=== PATIENT | female | born 1945 | race Caucasian/White ===

== ENCOUNTER 2019-03-17 15:36 | Inpatient (IN) | payer MEDICARE, BC ==
[~2019-03-17] VITALS: Ht 162.6 cm; Wt 53.3 kg
--- NOTE | ~2019-03-17 | HEMODYNAMI ---
PATIENT:BRII FREDERICK MEDICAL RECORD: [id number] : 47 [id number] ADMISSION DATE: 03/17/19 Generatedon:03/18/201910:39 Patient name: BRII FREDERICK Patient #: [id number] SSN: [id number] : 1945 Date of study: 03/18/2019 Page: Of Hemodynamic Procedure Report Patient Data Patient Demographics Procedure consent was obtained First Name: BRII Gender: Female Last Name: YOLY : 1945 Patient #: [id number] Age: 73 year(s) Race: Unknown SSN: [id number] Additional ID: [id number] Contact details [address]: [address] [place] [address] State: [place] City: [place] Zip code: [address] Past Medical History Allergies Allergen Reaction Date Comments Reported Other allergy 03/18/2019 N Admission Admission Data Admission Date: 03/17/2019 Admission Time: 19:21 Arrival Date: 03/17/2019 Arrival Time: 0:00 Admit Source: Other Insurance Payor: Private Room #: D.2126 health insurance, Medicare [facility] #: [id number] Height (in.): 63.78 BSA: 1.5 (m2) Height (cm.): 162 BMI: 18.67 (kg/m2) Weight (lbs.): 108.03 Weight (kg.): 49 Lab Results Lab Result Date: 03/18/2019 Lab Result Time: 0:00 Biochemistry Name Units Result Min Max BUN mg/dl 10 --(-*--)-- 7 18 Creatinine mg/dl 0.6 --(*---)-- 0.6 1.3 Troponin l ng/ml 0.544 --(----)-* 0 0.06 CBC Name Units Result Min Max Hemoglobin g/dl 13.4 -*(----)-- 13.5 17.5 Procedure Procedure Types Cath Procedure Diagnostic Procedure [facility] w/Coronaries FFR/IVUS Intra-Coronary IVUS Initial Sedation Charges Moderate Sedation up to 30 minutes PCI Procedure Coronary Stent Coronary Stent Initial Procedure Description Procedure Date Procedure Date: 03/18/2019 Procedure Start Time: 10:01 Procedure End Time: 10:37 Procedure Staff Name Function Poncho Almendarez MD Performing Physician Pam Rodrigues RN Spudder Elsy Benz RT Monitor Rama Kendrick RT Scrub Procedure Data Cath Procedure Fluoroscopy Diagnostic fluoroscopy Total fluoroscopy Time: 6.1 time: 6.1 min min Diagnostic fluoroscopy Total fluoroscopy dose: 761 dose: 761 mGy mGy Contrast Material Contrast Material Type Amount (ml) Isovue 300 105 Entry Location Entry Primary Successful Side Size Upsize Upsize Entry Closure Succes sful Closure Location (Fr) 1 (Fr) 2 (Fr) Remarks Device Remarks Femoral Right 5 Fr 6 Fr Exoseal artery Short Estimated blood loss: 10 ml Diagnostic catheters Device Type Used For End Catheter Placement MULTIPACK JL 4.0 5Fr Left Coronary catheter Angiography MULTIPACK 3DRC 5Fr Procedure catheter MULTIPACK Pigtail 5 Fr Ventriculography catheter Procedure Complications No complications Procedure Medications Medication Administration Route Dosage 0.9% NaCl I.V. 100 ml/hr Oxygen etCO2 Nasal cannula 2 l/min Lidocaine 2% added to field 20 Heparin Flush Bag added to field 2 bags (1000units/500ml NS) Versed I.V. 2 mg Fentanyl I.V. 25 mcg Heparin Bolus I.V. 5000 units Plavix P.O. 75 mg Hemodynamics Rest BSA: 1.5 (m2) HGB: 13.4 (g/dl) O2 Consumption: Estimated: 143.44 (ml/min) O2 Con sumption indexed: Estimated:95.63 (ml/min/m) Heart Rate: 80 (bpm) Pressure Samples Time Site Value (mmHg) Purpose Heart Use Rate(bpm) 10:08 LV 125/-2,13 Snapshot 77 Gradients Valve Time Site Site Mean SEP/DFP Peak To Heart Use 1 2 (mmHg) (sec/min) Peak Rate (mmHg) (bpm) Aortic 10:11 LV AO 82 Snapshots Pre Cath Intra NCS Post Cath Vital Signs Time Heart Resp SPO2 etCO2 NIBP (mmHg) Rhythm Pain Sedation Rate (ipm) (%) (mmHg) Status Level (bpm) 9:43:54 86 11 98 32 159/99(135) NSR 0 (11) 10(A) , No pain 9:48:08 83 17 98 24.8 150/85(124) NSR 0 (11) 10(A) , No pain 9:52:20 76 15 98 31.6 132/78(94) NSR 0 (11) 10(A) , No pain 9:56:26 81 15 96 32 129/78(103) NSR 0 (11) 10(A) , No pain 10:00:31 75 13 96 32 135/78(108) NSR 0 (11) 10(A) , No pain 10:04:37 66 13 96 34.5 130/81(101) NSR 0 (11) 9(A) , No pain 10:08:43 75 15 95 32.4 125/73(93) NSR 0 (11) 9(A) , No pain 10:12:51 66 15 95 33.9 123/68(95) NSR 0 (11) 9(A) , No pain 10:16:54 72 12 95 17.3 126/73(98) NSR 0 (11) 9(A) , No pain 10:20:58 80 13 96 15 124/79(98) NSR 0 (11) 9(A) , No pain 10:25:04 73 14 95 21.8 125/72(92) NSR 0 (11) 9(A) , No pain 10:29:08 78 15 96 33.1 129/83(95) NSR 0 (11) 9(A) , No pain 10:33:16 70 10 95 19.5 127/71(90) NSR 0 (11) 10(A) , No pain 10:37:21 81 15 95 12.7 132/76(99) NSR 0 (11) 10(A) , No pain Medications Time Medication Route Dose Verified Delivered Reason Notes Effectiveness by by 9:42:58 0.9% NaCl I.V. 100 Poncho Pam used for ml/hr Erickson Rodrigues power tool repairer 9:43:05 Oxygen etCO2 2 Poncho Pam used for Nasal l/min Erickson Rodrigues procedure cannula RN 9:43:09 Lidocaine 2% added 20ml Poncho Poncho for local to vial Erickson Almendarez MD anesthetic field 9:43:14 Heparin Flush added 2 Poncho Poncho used for Bag to bags Erickson Almendarez MD procedure (1000units/500ml field NS) 9:59:03 Versed I.V. 2 mg Poncho Pam for sedation Erickson Rodrigues RN 9:59:08 Fentanyl I.V. 25 Poncho Pam for sedation mcg Erickson Rodrigues RN 10:16:30 Heparin Bolus I.V. 5000 Poncho Pam for verif ied units Erickson Rodrigues anticoagulation with DrCarlee Almendarez 10:34:06 Plavix P.O. 75 mg Poncho Pam for Erickson Rodrigues antiplatelet RN therapy Procedure Log Time Note 9:42:16 Diagnostic Cath Status : Urgent 9:42:50 Vital chart was started 9:42:58 0.9% NaCl 100 ml/hr I.V. was administered by Pam Rodrigues RN; used for procedure; Verbal order read back and verified. 9:43:05 Oxygen 2 l/min etCO2 Nasal cannula was administered by Pam Rodrigues RN; used for procedure; Verbal order read back and verified. 9:43:09 Lidocaine 2% 20ml vial added to field was administered by Poncho Almendarez MD; for local anesthetic; Verbal order read back and verified. 9:43:14 Heparin Flush Bag (1000units/500ml NS) 2 bags added to field was administered by Poncho Almendarez MD; used for procedure; Verbal order read back and verified. 9:45:54 Admit Source: Other 9:46:05 Arrival Date: 03/17/2019 12:00:00 AM 9:46:36 Insurance Payor : Private health insurance, Medicare 9:46:49 Patient Height : 63.78 inches 9:46:52 Patient Weight : 108.03 lbs 9:48:16 Lab Result : Troponin l 0.544 ng/ml 9:48:16 Lab Result : Creatinine 0.6 mg/dl 9:48:16 Lab Result : BUN 10 mg/dl 9:48:16 Lab Result : Hemoglobin 13.4 g/dl 9:48:50 ACC Patient presents with Symptoms unlikely to be ischemic CCS Anginal Class 0--No symptoms, no angina. 9:48:54 Procedure Status Urgent Heart Cath (IP). 9:48:56 Elsy Demar RT(R) sent for patient. Start room use. 9:48:57 Time tracking: Regular hours (M-F 7:00 - 5:00) 9:49:02 Plan of Care:Hemodynamics will remain stable., Cardiac rhythm will remain stable., Comfort level will be maintained., Respiratory function will remain adequate., Patient/ family verbilizes understanding of procedure., Procedure tolerated without complication., Recovers from procedure without complications.. 9:49:07 Patient received from Med II to CCL 2 Alert and oriented. Tansferred to table in Supine position. 9:49:10 Signed procedure consent form obtained from patient. 9:49:11 Warm blankets applied, and tashia hugger turned on for patient comfort. 9:49:12 Correct patient and procedure confirmed by team. 9:49:13 ECG and BP/O2 sat monitors applied to patient. 9:49:15 Baseline sample Acquired. 9:49:19 Rhythm: sinus rhythm 9:49:20 Full Disclosure recording started 9:49:26 H&P Date Dictated: 03/17/2019 Within 30 days and on chart., H&P Addendum completed by physician on day of procedure. (MUST COMPLETE FOR ALL OUTPATIENTS). 9:49:28 Pre-procedure instructions explained to patient. 9:49:29 Family in patients room. 9:49:31 Patient NPO since Midnight. 9:49:41 Patient allergic to Other allergyPCN 9:49:45 Is the patient allergic to Iodine/contrast media? No. 9:49:46 Was the patient premedicated? Yes 9:49:48 Is patient on blood thinner?Yes 9:49:52 ACC The patient was administered the following blood thiners within the last 24 hours: ACCPlavix 9:49:55 Patient diabetic? No. 9:49:59 Snore? Yes 9:50:00 Sleep apnea? No 9:50:06 Dentures? Yes tight 9:50:14 Patient pain scale 0/10 ?. 9:50:22 IV patent on arrival in right wrist with 0.9% NaCl at KVO. 9:50:25 Lab results completed and on chart. 9:50:32 Stress Test: no; N/A ? 9:50:37 Right groin area was prepped with chlora-prep and draped in sterile fashion 9:50:38 Alarms reviewed by Haylee NCarlee 9:50:39 Sharps counted by scrub and verified by R.N. 9:50:40 Physician paged 9:57:01 Physician arrived 9:57:01 --------ALL STOP TIME OUT------ 9:57:02 Final Timeout: patient, procedure, and site verified with staff and physician. All members of the team are in agreement. 9:57:05 Right groin site verified by team. 9:57:08 Fire Safety Assessment: A--An alcohol-based skin anteseptic being used preoperatively., C--Open oxygen or nitrous oxide is being used., D--An ESU, laser, or fiber-optic light is being used. 9:57:11 Physical assessment completed. ASA score P 2 - A patient with mild systemic disease as per Poncho Almendarez MD. 9:57:19 Sedation plan: IV Moderate Sedation Medication:Versed, Fentanyl 9:57:37 1) 90+ Normal kidney functon but urine findings or structural abnormalities or genetic trait point to kidney disease. 9:57:40 Maximum allowable contrast dose (3.7 X eGFR X 0.75)249 ml. 9:57:57 Use device set Femoral Dx 9:57:59 ACIST Syringe (82332) opened to sterile field. 9:57:59 Bag Decanter (2002) opened to sterile field. 9:58:00 Medline Cath Pack ([id number]) opened to sterile field. 9:58:01 ACIST Hand Control (79016) opened to sterile field. 9:58:02 ACIST Manifold (48557) opened to sterile field. 9:58:03 DIAGNOSTIC Multipack 5Fr catheter set (NL5333) opened to sterile field. 9:58:04 Tegaderm 4 x 4 (1626W) opened to sterile field. 9:58:06 SHEATH 5FR [place] (MBZ656) opened to sterile field. 9:58:07 EMERALD Guide Wire (604-561) opened to sterile field. 9:59:03 Versed 2 mg I.V. was administered by Pam Rodrigues RN; for sedation; Verbal order read back and verified. 9:59:08 Fentanyl 25 mcg I.V. was administered by Pam Ravi RN; for sedation; Verbal order read back and verified. 10:00:47 Zero performed for pressure channel P1 10:01:08 Procedure started. 10:01:20 Local anesthetic to right femoral artery with Lidocaine 2% by Poncho Almendarez MD.INITIAL ACCESS ONLY 10:03:00 A 5 Fr sheath was inserted into the Right Femoral artery 10:03:16 A MULTIPACK JL 4.0 5Fr catheter was advanced over the wire and used for Left Coronary Angiography. 10:05:13 LCA angiography performed. 10:05:31 Catheter removed. 10:05:39 A MULTIPACK 3DRC 5Fr catheter was advanced over the wire and used for Procedure. 10:06:51 RCA angiography performed. 10:07:00 ACCDominant side:Left 10:07:14 Catheter removed. 10:07:23 A MULTIPACK Pigtail 5 Fr catheter was advanced over the wire and used for Ventriculography. 10:07:50 LV gram done using ROBLES 10:09:32 EF : 40 % 10:14:07 Catheter removed. 10:14:47 SHEATH 6FR [place] (STS137) opened to sterile field. 10:14:47 TUBING High Pressure Extension Tubing (Erickson) (LF0767F) opened to sterile field. 10:14:48 GUIDE 6FR XBLAD 3.5 catheter ([id number]) opened to sterile field. 10:14:49 [place] Vinton Eagleye IVUS Catheter (55505U) opened to sterile field. 10:15:13 INFLATOR Merit BasixCompak (UF5469) opened to sterile field. 10:15:23 Sheath upsized to a 6 Fr Short. 10:15:35 6 Fr XBLAD3.5 guide catheter was inserted over the wire 10:16:30 Heparin Bolus 5000 units I.V. was administered by Pam Rodrigues RN; for anticoagulation; verified with Dr. Almendarez Verbal order read back and verified. 10:17:09 BMW 300cm [place] 2 J wire ([id number]) opened to sterile field. 10:17:44 BMW wire advanced. 10:17:48 IVUS catheter advanced over wire. 10:28:20 IVUS pass to LAD lesion performed. 10:28:23 IVUS catheter removed over wire. 10:28:37 IVUS measurement 69% %. 10:31:02 Place stent Inflation Number: 1 A INTEGRITY RX 3.5 x 22 stent ([id number]) was prepped and advanced across the Mid LAD 70. The stent was deployed at 12 CARINE for 0:18 (min:sec) . 10:31:53 EXOSEAL 6Fr (EX600) opened to sterile field. 10:34:06 Plavix 75 mg P.O. was administered by Pam Rodrigues RN; for antiplatelet therapy; Verbal order read back and verified. 10:34:44 Sheath removed intact; hemostasis achieved with Exoseal to the Right Femoral artery. 10:34:47 Procedure ended.(Physican Out) 10:34:56 Fluoroscopy time 06.10 minutes. 10:35:05 Flurop Dose total: 761 10:35:05 Fluoroscopy dose: 761 mGy 10:35:12 Dose Area Product 39025 mGy/cm. 10:35:19 Contrast amount:Isovue 300 105ml. 10:35:25 Maximum allowable dose exceeded? No. 10:35:39 Insertion/operative site no bleeding no hematoma. 10:35:43 Post-op/insertion site Right Femoral artery dressed using a 4 x 4 and Tegaderm. 10:35:45 Post Procedure Pulses reassessed and unchanged 10:35:55 Post-procedure physical assessment completed. ASA score P 3 - A patient with severe systemic disease as per Poncho Almendarez MD. 10:35:58 Post procedure rhythm: unchanged. 10:36:01 Estimated blood loss: 10 ml 10:36:03 Post procedure instruction explained to patient.Patient verbalizes understanding. 10:36:29 Procedure type changed to Cath procedure, Diagnostic procedure, C, [facility] w/Coronaries, FFR/IVUS, Intra-Coronary IVUS Initial, Sedation Charges, Moderate Sedation up to 30 minutes, PCI procedure, Coronary Stent, Coronary Stent Initial 10:36:30 Procedure and supply charges have been captured, reviewed, submitted and are correct. 10:36:54 Procedure Complication : No complications 10:36:57 Vital chart was stopped 10:37:11 [facility] Findings: MVD- PCI performed (see procedure note) 10:37:14 Operative report dictated upon procedure completion. 10:37:14 See physician's report for complete and final results. 10:37:16 Report given to [facility] II. 10:37:21 Patient transfered to [facility] with Bed. 10:37:26 Procedure ended. 10:37:26 Full Disclosure recording stopped 10:37:38 End room use (Document Last) 10:38:35 ACT drawn and resulted at >400 seconds. (normal therapeutic range 180-240 seconds). Intervention Summary Intervention Notes Time ActionType Lesion and Equipment Action# Pressure Duration Attributes Used 10:31:02 Place stent Mid LAD INTEGRITY RX 1 12 00:18 3.5 x 22 stent ([id number]) Device Usage Item Name Manufacture Quantity Catalog Hospital Part Current Minimal Lot# / Number Charge Number Stock Stock Serial# Code ACIST Acist 1 04798 198631 650261 519688 20 Syringe Medical (28167) Systems Inc Bag Decanter Microtek 1 2001S 385720 68368 057807 5 () Medical Inc. Medline Cath Medline 1 [id number] 274587 14401 056177 5 Pack ([id number]) ACIST Hand Acist 1 94354 884328 015927 419642 5 Control Medical (65745) Systems Inc ACIST Acist 1 25550 907898 528958 582636 5 Manifold Medical (18020) Systems Inc DIAGNOSTIC Cardinal 1 IB0264 428296 03494 630226 30 Multipack Health 5Fr catheter set (EX5142) Tegaderm 4 x 3M 1 1626W 843497 185100 682729 5 4 (1626W) SHEATH 5FR Terumo 1 DFY319 732510 062961 055536 5 [place] (TAK984) EMERALD Cardinal 1 502-455 168627 263799 018364 5 Guide Wire [facility] (502-455) MULTIPACK JL Cardinal 1 728402 5 4.0 5Fr Health catheter MULTIPACK Cardinal 1 179983 5 3DRC 5Fr Health catheter MULTIPACK Cardinal 1 318501 5 Pigtail 5 Fr Health catheter SHEATH 6FR Terumo 1 MDW150 399680 580923 910960 40 [place] (ZZP047) TUBING High Merit 1 TO1874Y 391422 01651 226344 10 Pressure Medical Extension Tubing (Almendarez) (JZ1953W) GUIDE 6FR Cardinal 1 [id number] 920382 964676 917641 10 XBLAD 3.5 Health catheter (40994893) [place] 1 93136X 400705 606330 399535 8 [place] IVUS Catheter (41004X) INFLATOR Merit 1 LP4432 533519 207588 990853 15 [facility] Medical BasixCompak (ZX0477) BMW 300cm Meyer 1 [id number] 678922 281304 760623 5 [place] 2 Vascular J wire (0550257M) INTEGRITY RX Medtronic 1 [id number] 629835 131374 851116 5 [id number] 3.5 x 22 stent ([id number]) EXOSEAL 6Fr Cardinal 1 EX600 764896 465248 205802 10 (EX600) Health Signature Audit [place] Stage Time Signature Unsigned Intra-Procedure 03/18/2019 Elsy Benz 10:38:55 AM RT(R) Intra-Procedure 03/18/2019 Pam Rodrigues 10:39:31 AM RN Intra-Procedure 03/18/2019 Poncho Almendarez MD 10:39:53 AM Signatures Performing Physician : Signature : Poncho Almendarez MD Date : Time : Monitor : Elsy Benz Signature : RT Date : Time : [address] [place] [address]
[2019-03-17 16:29] VITALS: BP 142/74
--- NOTE | 2019-03-17 16:30 | NUR ---
PAGED DR MASTERS AND MADE AWARE THAT TROP 0.544 AND HE SAID THAT WAS FINE.
[2019-03-17 16:56] LABS: BASOPHILS 0.4 % (0-2); EOSINOPHILS 1.4 % (0-7); HEMATOCRIT 41.2 % (36.0-48.0); HEMOGLOBIN 13.4 g/dL (12-16); IMMATURE GRANULOCYTES 0.2 % (0-5); MCH 33.2 pg (26.0-34.0); MCHC 32.5 g/dL (31.0-37.0); MEAN PLATELET VOLUME 10.7 fL (7.4-10.4); MONOCYTES 9.7 % (2-11); NEUTROPHILS 63.3 % (40-80); PLATELET COUNT 160 10x3/uL (130-400); RBC 4.04 10x6/uL (4.00-5.40); RDW 13.3 % (11.5-14.5); WBC 5.6 10x3/uL (4.8-10.8)
[2019-03-17 17:00] VITALS: BP 124/65
[2019-03-17 17:09] LABS: APTT 35.6 SECONDS (22.8-39.4); INR 1.15 (0.85-1.17); PROTIME 14.2 SECONDS (11.6-15.0)
[2019-03-17 17:10] LABS: D-DIMER-QUANTITATIVE 0.83 ug/mLFEU (0.20-0.54)
[2019-03-17 17:12] LABS: CALC OSMOLALITY 281 mosm/kg (275-300); CALCIUM 8.4 mg/dL (8.5-10.1); CARBON DIOXIDE 27.3 mmol/L (21.0-32.0); CHLORIDE - SERUM 106 mmol/L (98-107); CREATININE - SERUM 0.6 mg/dL (0.6-1.3); GLUCOSE 92 mg/dL (74-106); POTASSIUM - SERUM 3.5 mmol/L (3.5-5.1); SODIUM 142 mmol/L (136-145); UREA NITROGEN 10 mg/dL (7-18); eGFR NON AFRICAN AMERICAN > 90 mL/min (90-120)
[2019-03-17 17:30] VITALS: BP 132/74
[2019-03-17 17:31] LABS: ALBUMIN 3.2 g/dL (3.4-5.0); ALKALINE PHOSPHATASE 64 U/L (46-116); ALT (SGPT) 26 U/L (10-68); BILIRUBIN - TOTAL 0.84 mg/dL (0.2-1.3); CKMB 4.9 U/L (0.0-3.6); CREATINE KINASE 121 UL (21-215); PROTEIN - SERUM 7.1 g/dL (6.4-8.2)
[2019-03-17 17:45] LABS: TROPONIN-I 0.544 ng/mL (0.000-0.060)
[2019-03-17 18:00] VITALS: BP 125/68
[2019-03-17 18:45] VITALS: BP 130/74
--- NOTE | 2019-03-17 18:56 | NUR ---
SANDWICH TRAY GIVEN TO PT AFTER CLEARED WITH DR SEVILLA
--- NOTE | 2019-03-17 19:12 | NUR ---
REPORT GIVEN TO KYMBERLY
[2019-03-17 20:12] LABS: CKMB 4.4 U/L (0.0-3.6); CREATINE KINASE 118 UL (21-215)
[2019-03-17 20:18] LABS: TROPONIN-I 0.588 ng/mL (0.000-0.060)
[2019-03-17] MEDS ORDERED: ALENDRONATE SOD35 MG PO (21:16)
[2019-03-17] MEDS ORDERED: CITRACAL + D E1 EACH PO (21:17)
[2019-03-17] MEDS ORDERED: VITAMIN C500 M1 PO (21:17)
[2019-03-17] MEDS ORDERED: VITAMIN D31000 UNIT PO (21:17)
[2019-03-17] MEDS ORDERED: CETIRIZINE HCL5 MG PO (21:18)
[2019-03-17] MEDS ORDERED: VITAMIN E100 UNIT PO (21:18)
[2019-03-17 22:06] VITALS: BP 140/86; Ht 162.6 cm; Wt 53.3 kg
[2019-03-18 02:34] LABS: CKMB 3.7 U/L (0.0-3.6); CREATINE KINASE 120 UL (21-215)
[2019-03-18 02:35] LABS: TROPONIN-I 0.544 ng/mL (0.000-0.060)
--- NOTE | 2019-03-18 03:20 | NUR ---
RESTING WITH EYES CLOSED, RESPERATIONS EVEN, NO S/S DISTRESS NOTED.
[2019-03-18 04:00] VITALS: BP 122/67
[2019-03-18 07:33] LABS: BASOPHILS 0.7 % (0-2); HEMATOCRIT 38.9 % (36.0-48.0); HEMOGLOBIN 12.6 g/dL (12-16); LYMPHOCYTES 24.9 % (15-50); MCH 33.2 pg (26.0-34.0); MCHC 32.4 g/dL (31.0-37.0); MCV 102.4 fL (80.0-100.0); MEAN PLATELET VOLUME 11.1 fL (7.4-10.4); MONOCYTES 12.1 % (2-11); NEUTROPHILS 58.3 % (40-80); PLATELET COUNT 148 10x3/uL (130-400); RDW 13.6 % (11.5-14.5); WBC 4.5 10x3/uL (4.8-10.8)
--- NOTE | 2019-03-18 07:48 | NUR ---
REPORT RECEIVED. WILL CONTINUE WITH POC. PT LYING SEMI FOWLERS. CALL LIGHT W/I REACH. PT IS AAO AND UP WITH ASSIST. FAMILY AT BEDSIDE. RR EVEN AND UNLABORED ON 2L 02. R.FOR PIV IS SALINE LOCKED. PT IS NPO UNTIL SEEN BY CARDIOLOGY. NO S/S OF DISTRESS NOTED. PT DENIES ANY NEEDS AT THIS TIME. WILL CTM.
[2019-03-18 07:50] LABS: ALKALINE PHOSPHATASE 60 U/L (46-116); ALT (SGPT) 24 U/L (10-68); BILIRUBIN - TOTAL 0.63 mg/dL (0.2-1.3); CALC OSMOLALITY 281 mosm/kg (275-300); CALCIUM 7.9 mg/dL (8.5-10.1); CHLORIDE - SERUM 107 mmol/L (98-107); CKMB 3.9 U/L (0.0-3.6); CREATINE KINASE 133 UL (21-215); CREATININE - SERUM 0.7 mg/dL (0.6-1.3); GLUCOSE 92 mg/dL (74-106); MAGNESIUM - SERUM 2.1 mg/dL (1.8-2.4); PHOSPHOROUS 2.9 mg/dL (2.5-4.9); POTASSIUM - SERUM 3.1 mmol/L (3.5-5.1); PROTEIN - SERUM 6.9 g/dL (6.4-8.2); SODIUM 141 mmol/L (136-145); THYROID STIMULATING HORMONE 2.89 uIU/mL (0.36-3.74); UREA NITROGEN 15 mg/dL (7-18); eGFR NON AFRICAN AMERICAN 87 mL/min (90-120)
[2019-03-18 08:00] VITALS: BP 123/75
[2019-03-18 09:03] LABS: CHOL - HDL RATIO 2.8 ratio (2.3-4.1); LDL-HDL RATIO 1.5 ratio (1.5-3.5)
--- NOTE | 2019-03-18 09:14 | NUR ---
CONSENTS SIGNED. PREOP MEDICATIONS ADMININSTERED PER PRIMARY CARE MD REQUEST. NS INFUSING @KVO VIA R.WRIST PIV. NO S/S OF DISTRESS NOTED. PT DENIES ANY NEEDS. WILL CTM.
--- NOTE | 2019-03-18 10:57 | NUR ---
RECEIVED PT FROM STAGE DRIVER. RIGHT FEMORAL CATH SITE IS C/D/I WITH NO S/S OF HEMATOMA PRESENT. PERIPHERAL PULSES BILATERALLY EVEN AND STRONG. PT DENIES ANY NEEDS. NS INFUSING @100ML/HR VIA R.WRIST PIV. WILL CTM.
[2019-03-18 12:00] VITALS: BP 105/61
--- NOTE | 2019-03-18 14:34 | NUR ---
I have reviewed this patient and I concur with the Shift Assessment completed by the Licensed Practical Nurse today this shift.
[2019-03-18 16:34] VITALS: BP 104/58
[2019-03-18 20:00] VITALS: BP 106/61
--- NOTE | 2019-03-18 20:04 | NUR ---
RECEIVED UP IN BED EATING WITH FAMILY AT BEDSIDE. ALERT AND ORIENTED. UP WITH ASSIST. SOUSE STATES HE WILL SPEND THE NIGHT. DSG TO RIGHT GROIN CDI. NO BRUISING OBSERVED. IV TO RIGHT FA SL.. TELEMETRY IN PLACE. DENIES ANY NEEDS AT THIS TIME.
[2019-03-19] VITALS: BP 121/71
[2019-03-19 04:00] VITALS: BP 122/73
[2019-03-19 06:09] LABS: BASOPHILS 0.3 % (0-2); EOSINOPHILS 2.7 % (0-7); HEMOGLOBIN 11.6 g/dL (12-16); LYMPHOCYTES 21.8 % (15-50); MCHC 31.4 g/dL (31.0-37.0); MCV 102.2 fL (80.0-100.0); MONOCYTES 10.3 % (2-11); NEUTROPHILS 64.9 % (40-80); PLATELET COUNT 150 10x3/uL (130-400); RBC 3.62 10x6/uL (4.00-5.40); RDW 13.6 % (11.5-14.5)
[2019-03-19 06:24] LABS: CALC OSMOLALITY 284 mosm/kg (275-300); CHLORIDE - SERUM 107 mmol/L (98-107); CREATININE - SERUM 0.7 mg/dL (0.6-1.3); GLUCOSE 97 mg/dL (74-106); MAGNESIUM - SERUM 2.3 mg/dL (1.8-2.4); PHOSPHOROUS 2.6 mg/dL (2.5-4.9); POTASSIUM - SERUM 3.6 mmol/L (3.5-5.1); SODIUM 143 mmol/L (136-145); UREA NITROGEN 13 mg/dL (7-18); eGFR NON AFRICAN AMERICAN 87 mL/min (90-120)
[2019-03-19 06:27] LABS: WBC 6.8 10x3/uL (4.8-10.8)
--- NOTE | 2019-03-19 07:31 | NUR ---
REPORT RECEIVED. WILL CONTINUE WITH POC. PT CURRENTLY LYING SEMI FOWLERS. CALL LIGHT W/I REACH. FAMILY AT BEDSIDE. PT IS AAO AND UP AD ARTEM. RR EVEN AND UNLABORED ON RA. R.FOR PIV IS SALINE LOCKED. NO S/S OF DISTRESS NOTED. PT DENIES ANY NEEDS. WILL CTM.
[2019-03-19 08:00] VITALS: BP 125/72
[2019-03-19] MEDS ORDERED: COREG 3.1253.125 MG PO (09:52)
[2019-03-19] MEDS ORDERED: CRESTOR10 MG PO (09:52)
[2019-03-19] MEDS ORDERED: PLAVIX75 MG PO (09:52)
[2019-03-19] MEDS ORDERED: BAYER CHEWABLE81 MG PO (10:25)
--- NOTE | 2019-03-19 10:38 | MORECARE ---
CASE MANAGEMENT DISCHARGE SUMMARY PATIENT: MERRY FREDERICK UNIT: [id number] ADM DATE: 03/18/19 AGE: 73 : 46 SEX: F ROOM/BED: D.9606 AUTHOR: MADELEINE MCCULLOUGH PHYSICIAN: REFERRING PHYSICIAN: MARCELA ALEJO MD DATE OF SERVICE: 03/19/19 Discharge Plan Patient Name: MERRY FREDERICK Facility: [facility]:[place] : 1945 Planned Disposition: Home Anticipated Discharge Date: 03/19/19 Discharge Date: Expected LOS: 1 Initial Reviewer: [email or web address] Initial Review Date: 03/19/2019 Generated: 03/19/19 11:38 am Comments DCP- Discharge Planning Updated by [email or web address]: Starla Zambrano on 03/19/19 9:[address] Patient Name: MERRY FREDERICK Admission Status: ER Accout number: [id number] Admission Date: 03-18-2019 : 1945 Admission Diagnosis: Attending: MARCELA PARDO Current LOS: 1 Anticipated DC Date: 03-19-2019 Planned Disposition: Home Primary Insurance: MEDICARE A & B Discharge Planning Comments: CM MET WITH PATIENT AND FAMILY AFTER OBTAINING VERBAL CONSENT. PATIENT'S PLAN IS TO RETURN HOME WITH SPOUSE. DENIES ANY NEEDS FOR EQUIPMENT, HH OR REHAB. FAMILY IS HERE TO TAKE HER HOME WHEN DISCHARGED. CM TO FOLLOW AND ASSIST. Auto Parts Manager: Starla Zambrano DCPIA - Discharge Planning Initial Assessment Updated by [email or web address]: Starla Zambrano on 03/19/19 10:34 am * Is the patient Alert and Oriented? Yes * PCP [facility] [place] * Pharmacy [facility] [place] * Preadmission Environment Home with Family * ADLs Independent * Equipment None * Community resources currently utilized None * Additional services required to return to the preadmission environment? No * Can the patient safely return to the preadmission environment? Yes * Has this patient been hospitalized within the prior 30 days at any hospital? No Coverage Notice Reviewer: [id number] - Megan Koroma Notice Issued Date-Time: 03/17/2019 19:41 Notice Type: Medicare Outpatient Observation Notice Notice Delivered To: Patient Relationship to Patient: Self Manager Food Beverage Name: Merry frederick Delivery Method: HAND - Hand Delivered Rohini Days: Prior Verbal Notification: Recipient Understood Notice: Yes Recipient Signature: Yes Med Rec Note Co-signed by Attending: Coverage Notice Comment: MALDONADO delivered to and signed by patient. Original given to patient and on chart. Patient Name: MERRY FREDERICK Page [phone] at 1038 All edits/amendments must be made on the electronic document DICTATION DATE: 03/19/19 1038 TIRE RECAPPING MACHINE OPERATOR: JOSSIE 03/19/19 1038 RPT#: [id number] DC DATE: STATUS: ADM IN [facility] [address] [place] [address] END OF REPORT
--- NOTE | 2019-03-19 10:56 | NUR ---
PT DISCHARGED HOME VIA WHEELCHAIR WITH FAMILY. PIV REMOVED WITH CATHETER TIP FULLY INTACT. TELEMETRY REMOVED AND RETURNED. PT SIGNED PROPER DISCHARGE INSTRUCTIONS AND REMOVED ALL VALUABLES FROM THE ROOM.
--- NOTE | 2019-03-19 12:17 | MORECARE ---
CASE MANAGEMENT DISCHARGE SUMMARY PATIENT: MERRY FREDERICK UNIT: [id number] ADM DATE: 03/18/19 AGE: 73 : 46 SEX: F ROOM/BED: D.0556 AUTHOR: MADELEINE MCCULLOUGH PHYSICIAN: REFERRING PHYSICIAN: MARCELA ALEJO MD DATE OF SERVICE: 03/19/19 Discharge Plan Patient Name: MERRY FREDERICK Facility: [facility]:[place] : 1945 Planned Disposition: Home Anticipated Discharge Date: 03/19/19 Discharge Date: 03/19/2019 Expected LOS: 1 Initial Reviewer: [email or web address] Initial Review Date: 03/19/2019 Generated: 03/19/19 1:17 pm Comments DCP- Discharge Planning Updated by [email or web address]: Starla Zambrano on 03/19/19 9:[address] Patient Name: MERRY FREDERICK Admission Status: ER Accout number: [id number] Admission Date: 03-18-2019 : 1945 Admission Diagnosis: Attending: MARCELA PARDO Current LOS: 1 Anticipated DC Date: 03-19-2019 Planned Disposition: Home Primary Insurance: MEDICARE A & B Discharge Planning Comments: CM MET WITH PATIENT AND FAMILY AFTER OBTAINING VERBAL CONSENT. PATIENT'S PLAN IS TO RETURN HOME WITH SPOUSE. DENIES ANY NEEDS FOR EQUIPMENT, HH OR REHAB. FAMILY IS HERE TO TAKE HER HOME WHEN DISCHARGED. CM TO FOLLOW AND ASSIST. Flight Simulator Teacher: Starla Zambrano DCPIA - Discharge Planning Initial Assessment Updated by [email or web address]: Starla Zambrano on 03/19/19 10:34 am * Is the patient Alert and Oriented? Yes * PCP [facility] [place] * Pharmacy [facility] [place] * Preadmission Environment Home with Family * ADLs Independent * Equipment None * Community resources currently utilized None * Additional services required to return to the preadmission environment? No * Can the patient safely return to the preadmission environment? Yes * Has this patient been hospitalized within the prior 30 days at any hospital? No Coverage Notice Reviewer: [email or web address] - Megan Koroma Notice Issued Date-Time: 03/17/2019 19:41 Notice Type: Medicare Outpatient Observation Notice Notice Delivered To: Patient Relationship to Patient: Self [employer] Fire Fighter Name: Merry frederick Delivery Method: HAND - Hand Delivered Rohini Days: Prior Verbal Notification: Recipient Understood Notice: Yes Recipient Signature: Yes Med Rec Note Co-signed by Attending: Coverage Notice Comment: MALDONADO delivered to and signed by patient. Original given to patient and on chart. Last DP export: 03/19/19 9:38 Patient Name: MERRY FREDERICK Page [phone] at 1217 All edits/amendments must be made on the electronic document DICTATION DATE: 03/19/191216 PHOTO CHECKER AND ASSEMBLER: JOSSIE 03/19/191216 RPT#: [id number] DC DATE:03/19/19 STATUS: DIS IN [facility] [address] [place] [address] END OF REPORT
== END 2019-03-19 11:12 | disposition home or self-care (01) | DRG 249 ==
LOC: D.ER 15:36 → D.M2 19:21 → OBSVTIME 19:21 → D.M2 03-18 18:20
PROVIDERS: Family Medicine; Internal Medicine Cardiovascular Disease; ADMIT Family Medicine Adult Medicine; ATTEND Family Medicine Adult Medicine
PROC: B2111ZZ Fluoroscopy of Multiple Coronary Arteries using Low Osmolar Contrast (ICD-10-PCS; 2019-03-18)
PROC: B2151ZZ Fluoroscopy of Left Heart using Low Osmolar Contrast (ICD-10-PCS; 2019-03-18)
PROC: B240ZZ3 Ultrasonography of Single Coronary Artery, Intravascular (ICD-10-PCS; 2019-03-18)
PROC: 02703DZ Dilation of Coronary Artery, One Artery with Intraluminal Device, Percutaneous Approach (ICD-10-PCS; principal; 2019-03-18 09:48)
PROC: 4A023N7 Measurement of Cardiac Sampling and Pressure, Left Heart, Percutaneous Approach (ICD-10-PCS; 2019-03-18 09:48)
DX: I21.4 Non-ST elevation (NSTEMI) myocardial infarction (principal); I25.10 Atherosclerotic heart disease of native coronary artery without angina pectoris; K21.9 Gastro-esophageal reflux disease without esophagitis; D75.89 Other specified diseases of blood and blood-forming organs; M81.0 Age-related osteoporosis without current pathological fracture; M41.9 Scoliosis, unspecified; I49.1 Atrial premature depolarization

== ENCOUNTER → 2020-07-10 10:47 | Outpatient (CLI) | payer MEDICARE, BC ==
[2019-03-17 22:06] VITALS: BMI 18.7
[~2020-07-10 10:47] MED LIST: ALENDRONATE SOD35 MG PO; BAYER CHEWABLE81 MG PO; CETIRIZINE HCL5 MG PO; CITRACAL + D E1 EACH PO; COREG 3.1253.125 MG PO; CRESTOR10 MG PO; PLAVIX75 MG PO; VITAMIN C500 M1 PO; VITAMIN D31000 UNIT PO; VITAMIN E100 UNIT PO
--- NOTE | 2020-07-11 13:52 | ST ---
PATIENT:BRII FREDERICK MEDICAL RECORD: [id number] SEX: F LOCATION:[facility] ORDER #: ADMISSION DATE: 07/10/20 AGE OF PATIENT: 74 REFERRING PHYSICIAN: INTERPRETING PHYSICIAN: HUMAIRA LY MD DATE OF SERVICE: 07/10/2020 NUCLEAR STRESS TEST GATED: Gated is normal with normal wall motion and normal EF of 75%. SPECT IMAGING: SPECT imaging was performed. Short axis view: Short axis view shows reversible defect from the mid anterior wall down to the anterior apex. Horizontal axis: This is confirmed in the horizontal axis with a reversible defect from the mid anterior wall down to the anterior apical region. Vertical axis: Vertical axis shows good uptake along the lateral wall and septum. FINAL IMPRESSION: 1. Normal gated motion, normal wall motion, normal EF 75%. 2. SPECT imaging with mid anterior wall down to the anterior apical reversible defect seen in 2 views. FINAL IMPRESSION: Given history of coronary artery disease and ongoing ischemic symptomatology scan is concerning for recurrence of disease or progression of havasupai disease. Diagnostic angiography is recommended if clinically indicated. TRANSINT:[id number] Voice Confirmation ID: [id number] DOCUMENT ID: [id number] HUMAIRA LY MD at 1352 CC: [id number] DICTATION DATE: 07/10/20 1628 DESKTOP SUPPORT SPECIALIST: 07/11/20 0519 [facility] CLI 07/10/[address] [address]
== END | disposition home or self-care (01) ==
LOC: D.HCCARDIO 06-08 11:30
PROVIDERS: ATTEND Internal Medicine Interventional Cardiology
DX: I25.10 Atherosclerotic heart disease of native coronary artery without angina pectoris (principal)

== ENCOUNTER 2020-07-26 10:49 | Day surgery (SDC) | payer MEDICARE, BC ==
[~2020-07-26] VITALS: Ht 165.1 cm; Wt 46.2 kg
--- NOTE | ~2020-07-26 | HEMODYNAMI ---
PATIENT:BRII FREDERICK MEDICAL RECORD: [id number] : 47 LOCATION:[facility] ADMISSION DATE: 07/26/20 Generatedon:114:20 Patient name: BRII FREDERICK Patient #: [id number] SSN: [id number] : 1945 Date of study: 07/26/2020 Page: Of Hemodynamic Procedure Report Patient Data Patient Demographics Procedure consent was obtained First Name: BRII Gender: Female Last Name: YOLY : 1945 Patient #: [id number] Age: 74 year(s) Race: Unknown SSN: [id number] Additional ID: [id number] Contact details [address]: [address] [place] [address] State: [place] City: [place] Zip code: [address] Past Medical History Performed procedures and imaging results Date Procedure Procedure Results Comments Stress Positive->Intermediate echocardiogram risk History of disease Date Diagnosis Comments CAD Allergies Allergen Reaction Date Comments Reported Other allergy 03/18/2019 PCN Other allergy 07/26/2020 PCN Admission Admission Data Admission Date: 07/26/2020 Admission Time: 10:49 Arrival Date: 07/26/2020 Arrival Time: 0:00 Admit Source: Other Insurance Payor: Medicare, Private health insurance [facility] #: [id number] Height (in.): 64.96 BSA: 1.48 (m2) Height (cm.): 165 BMI: 16.9 (kg/m2) Weight (lbs.): 101.41 Weight (kg.): 46 Lab Results Lab Result Date: 07/26/2020 Lab Result Time: 0:00 Biochemistry Name Units Result Min Max BUN mg/dl 12 --(-*--)-- 7 18 Creatinine mg/dl 0.6 --(*---)-- 0.6 1.3 eGFR ml/min 90 --(*---)-- 90 120 NONAFRICAN CBC Name Units Result Min Max Hemoglobin g/dl 12.1 *-(----)-- 13.5 17.5 Procedure Procedure Types Cath Procedure Diagnostic Procedure [facility] w/Coronaries FFR/IVUS FFR Initial Sedation Charges Moderate Sedation 25-39 minutes PCI Procedure Coronary Stent Coronary Stent Initial Hemochron ACT Test Procedure Description Procedure Date Procedure Date: 07/26/2020 Procedure Start Time: 13:44 Procedure End Time: 14:13 Procedure Staff Name Function Poncho Almendarez MD Performing Physician Ayesha Mckinney RT Monitor Vaughn Walsh RN Nurse Elsy Benz RT Scrub Procedure Data Cath Procedure Fluoroscopy Diagnostic fluoroscopy Total fluoroscopy Time: 4.5 time: 4.5 min min Diagnostic fluoroscopy Total fluoroscopy dose: 618 dose: 618 mGy mGy Contrast Material Contrast Material Type Amount (ml) Isovue 300 87 Entry Location Entry Primary Successful Side Size Upsize Upsize Entry Closure Succes sful Closure Location (Fr) 1 (Fr) 2 (Fr) Remarks Device Remarks Femoral Right 5 Fr 6 Fr Exoseal artery Short Estimated blood loss: 10 ml Diagnostic catheters Device Type Used For End Catheter Placement MULTIPACK JL 4.0 5Fr Procedure catheter MULTIPACK 3DRC 5Fr Procedure catheter MULTIPACK Pigtail 5 Fr Procedure catheter Procedure Complications No complications Procedure Medications Medication Administration Route Dosage 0.9% NaCl I.V. 100 ml/hr Oxygen etCO2 Nasal cannula 2 l/min Heparin Flush Bag added to field 2 bags (1000units/500ml NS) Lidocaine 2% added to field 20 Versed I.V. 2 mg Fentanyl I.V. 50 mcg Fentanyl I.V. 50 mcg Heparin Bolus I.V. 4500 units Plavix P.O. 600 mg Hemodynamics Rest BSA: 1.48 (m2) HGB: 12.1 (g/dl) O2 Consumption: Estimated: 127.27 (ml/min) O2 Co nsumption indexed: Estimated:85.99 (ml/min/m) Heart Rate: 56 (bpm) Pressure Samples Time Site Value (mmHg) Purpose Heart Use Rate(bpm) 13:52 LV 173/-8,19 Snapshot 56 Gradients Valve Time Site Site Mean SEP/DFP Peak To Heart Use 1 2 (mmHg) (sec/min) Peak Rate (mmHg) (bpm) Aortic 13:52 LV AO 56 Snapshots Pre Cath Intra NCS Post Cath Vital Signs Time Heart Resp SPO2 etCO2 NIBP (mmHg) Rhythm Pain Sedation Rate (ipm) (%) (mmHg) Status Level (bpm) 13:22:35 52 15 100 164/71(136) NSR 0 (11) 10(A) , No pain 13:26:43 53 13 100 34.1 166/76(131) NSR 0 (11) 10(A) , No pain 13:31:32 52 15 100 32.6 159/71(125) NSR 0 (11) 10(A) , No pain 13:35:46 50 12 99 30.3 144/67(114) NSR 0 (11) 10(A) , No pain 13:39:56 51 10 98 0 131/68(109) NSR 0 (11) 10(A) , No pain 13:44:51 52 13 98 36.4 152/74(124) NSR 0 (11) 10(A) , No pain 13:49:39 52 12 98 19.7 159/72(131) NSR 0 (11) 9(A) , No pain 13:53:45 57 10 98 0 155/76(117) NSR 0 (11) 9(A) , No pain 13:57:55 56 10 98 0 150/69(114) NSR 0 (11) 9(A) , No pain 14:02:40 55 11 98 36.4 157/78(130) NSR 0 (11) 10(A) , No pain 14:06:52 56 10 98 37.9 159/67(126) NSR 0 (11) 10(A) , No pain 14:11:40 57 17 99 30.3 172/84(139) NSR 0 (11) 10(A) , No pain Medications Time Medication Route Dose Verified Delivered Reason Notes Effectiveness by by 13:32:38 0.9% NaCl I.V. 100 Vaughn Vaughn Per physician ml/hr Jillian Walsh RN RN 13:32:47 Oxygen etCO2 2 Vaughn Vaughn for low 02 sats Nasal l/min Jillian Walsh cannula RN RN 13:32:57 Heparin Flush added 2 Vaughn Vaughn used for Bag to bags Jillian Walsh procedure (1000units/500ml field RN RN NS) 13:33:07 Lidocaine 2% added 20ml Vaughn Vaughn for local to vial Jillian Walsh anesthetic field RN RN 13:41:49 Versed I.V. 2 mg Vaughn Vaughn for sedation Jillian Walsh RN RN 13:41:58 Fentanyl I.V. 50 Vaughn Vaughn for sedation mcg Jillian Walsh RN RN 13:44:21 Fentanyl I.V. 50 Vaughn Vaughn for sedation mcg Jillian Walsh RN RN 13:57:21 Heparin Bolus I.V. 4,500 Vaughn Vaughn for units Jillian Walsh anticoagulation RN RN 14:11:57 Plavix P.O. 600 Vaughn Vaughn for mg Jillian Walsh antiplatelet RN RN therapy Procedure Log Time Note 12:55:23 Arrival Date: 07/26/2020 12:00:00 AM 12:55:42 Admit Source: Other 12:55:47 Insurance Payor : Private health insurance, Medicare 12:58:27 Patient Height : 64.96 inches 12:58:32 Patient Weight : 101.41 lbs 12:59:00 Lab Result : Creatinine 0.6 mg/dl 12:59:00 Lab Result : BUN 12 mg/dl 12:59:00 Lab Result : Hemoglobin 12.1 g/dl 12:59:00 Lab Result : eGFR NONAFRICAN 90 ml/min 12:59:41 Procedure Status Elective Heart Cath (OP). 12:59:44 Elsy SOLITARIO(R) sent for patient. Start room use. 12:59:46 Time tracking: Regular hours (M-F 7:00 - 5:00) 12:59:51 Plan of Care:Hemodynamics will remain stable., Cardiac rhythm will remain stable., Comfort level will be maintained., Respiratory function will remain adequate., Patient/ family verbilizes understanding of procedure., Procedure tolerated without complication., Recovers from procedure without complications.. 12:59:58 Patient received from Pre/Post Procedure Room to CCL 2 Alert and oriented. Tansferred to table in Supine position. 13:20:26 Signed procedure consent form obtained from patient. 13:20:27 Warm blankets applied, and tashia hugger turned on for patient comfort. 13:20:28 Correct patient and procedure confirmed by team. 13:20:28 ECG and BP/O2 sat monitors applied to patient. ::29 Baseline sample Acquired. :20:29 Vital chart was started 13:20:31 Full Disclosure recording started 13:20:38 H&P Date Dictated: 07/26/2020 Within 30 days and on chart., H&P Addendum completed by physician on day of procedure. (MUST COMPLETE FOR ALL OUTPATIENTS). 13:20:40 Pre-procedure instructions explained to patient. 13:20:43 Family in patients room. 13:20:46 Patient NPO since Midnight. 13:20:58 Patient allergic to Other allergyPCN 13:21:01 Is the patient allergic to Iodine/contrast media? No. 13:21:02 Was the patient premedicated? Yes 13:21:04 Is patient on blood thinner?No 13:21:06 Patient diabetic? No. 13:21:10 Snore? Yes 13:21:12 Sleep apnea? No 13:21:16 Dentures? Unknown ? 13:21:23 Patient pain scale 0/10 ?. 13:21:32 IV patent on arrival in left forearm with 0.9% NaCl at O. 13:21:40 Lab results completed and on chart. 13:21:55 Stress Test: yes; abnormal anterior/apical 13:21:59 Right groin area was prepped with chlora-prep and draped in sterile fashion 13:22:00 Alarms reviewed by R. N. 13:22:00 Sharps counted by scrub and verified by R.N. 13:24:47 Deviated septum? No 13:24:48 Opens mouth fully? Yes 13:24:49 Sticks out tongue? Yes 13:24:50 Airway obstruction? No ? 13:24:56 Rhythm: sinus bradycardia 13:32:38 0.9% NaCl 100 ml/hr I.V. was administered by Vaughn Walsh RN; Per physician; Verbal order read back and verified. 13:32:47 Oxygen 2 l/min etCO2 Nasal cannula was administered by Vaughn Walsh RN; for low 02 sats; Verbal order read back and verified. 13:32:57 Heparin Flush Bag (1000units/500ml NS) 2 bags added to field was administered by Vaughn Walsh RN; used for procedure; Verbal order read back and verified. 13:33:07 Lidocaine 2% 20ml vial added to field was administered by Vaughn Walsh RN; for local anesthetic; Verbal order read back and verified. 13:34:08 Zero performed for pressure channel P1 13:35:38 --------ALL STOP TIME OUT------ 13:35:38 Final Timeout: patient, procedure, and site verified with staff and physician. All members of the team are in agreement. 13:35:40 Right groin site verified by team. 13:35:43 Fire Safety Assessment: A--An alcohol-based skin anteseptic being used preoperatively., C--Open oxygen or nitrous oxide is being used., D--An ESU, laser, or fiber-optic light is being used. 13:35:46 Physical assessment completed. ASA score P 2 - A patient with mild systemic disease as per Poncho Almendarez MD. 13:35:48 1) 90+ Normal kidney functon but urine findings or structural abnormalities or genetic trait point to kidney disease. 13:35:50 Maximum allowable contrast dose (3.7 X eGFR X 0.75)250 ml. 13:35:55 Sedation plan: IV Moderate Sedation Medication:Versed, Fentanyl 13:41:49 Versed 2 mg I.V. was administered by Vaughn Walsh RN; for sedation; Verbal order read back and verified. 13:41:58 Fentanyl 50 mcg I.V. was administered by Vaughn Walsh RN; for sedation; Verbal order read back and verified. 13:43:25 Zero performed for pressure channel P1 13:43:35 Procedure started. 13:43:37 Use device set Femoral Dx 13:43:37 ACIST Syringe (31368) opened to sterile field. 13:43:38 Bag Decanter () opened to sterile field. 13:43:39 ACIST Hand Control (68466) opened to sterile field. 13:43:39 ACIST Manifold (55047) opened to sterile field. 13:43:40 Tegaderm 4 x 4 (1626W) opened to sterile field. 13:43:41 Medline Cath Pack ([id number]) opened to sterile field. 13:43:42 DIAGNOSTIC Multipack 5Fr catheter set (GN4146) opened to sterile field. 13:43:43 SHEATH 5FR Campbell (XLT527) opened to sterile field. 13:43:43 EMERALD Guide Wire (729-869) opened to sterile field. 13:44:10 Local anesthetic to right femoral artery with Lidocaine 2% by Poncho Almendarez MD.INITIAL ACCESS ONLY 13:44:21 Fentanyl 50 mcg I.V. was administered by Vauhgn Walsh RN; for sedation; Verbal order read back and verified. 13:46:25 A 5 Fr sheath was inserted into the Right Femoral artery 13:47:57 A MULTIPACK JL 4.0 5Fr catheter was advanced over the wire and used for Procedure. 13:49:07 LCA angiography performed. 13:49:11 Catheter exchanged over wire. 13:50:49 A MULTIPACK 3DRC 5Fr catheter was advanced over the wire and used for Procedure. 13:50:53 RCA angiography performed. 13:51:04 Catheter exchanged over wire. 13:51:14 A MULTIPACK Pigtail 5 Fr catheter was advanced over the wire and used for Procedure. 13:52:23 LV gram done using ROBLES 13:52:25 Injector settings: Ml/sec: 10, Volume: 20, 13:52:29 LV hemodynamics recorded. 13:52:37 EF : 60 % 13:53:00 Catheter exchanged over wire. 13:53:48 Proceeding to intervention. 13:54:03 SHEATH 6FR Campbell (YOO167) opened to sterile field. 13:54:03 TUBING High Pressure Extension Tubing (Erickson) ([id number]) opened to sterile field. 13:54:15 GUIDE 6FR XBLAD 3.5 catheter ([id number]) opened to sterile field. 13:54:15 INFLATOR Merit BasixCompak (EM9939) opened to sterile field. 13:55:19 Sheath upsized to a 6 Fr Short. 13:55:58 6 Fr XBLAD 3.5 guide catheter was inserted over the wire 13:56:42 Kanosh OmniWire (61225) opened to sterile field. 13:57:21 Heparin Bolus 4,500 units I.V. was administered by Vaughn Walsh RN; for anticoagulation; Verbal order read back and verified. 13:57:48 Pressure wire advanced. 14:00:04 Wire advanced across lad lesion. 14:04:25 Pre PCI Site: Tribe LAD has 80% stenosis. 14:05:51 Place stent Inflation Number: 1 A GEORGE RX 3.5 x 18 stent ([id number]) was prepped and advanced across the Mid LAD . The stent was deployed at 12 CARINE for 0:00 (min:sec) . 14:06:19 Stent catheter was removed intact over wire. 14:07:51 LAD lesion measured at .94 with IFR post stent deployment 14:08:10 Wire removed. 14:08:10 Guide catheter removed. 14:08:20 EXOSEAL 6Fr (EX600) opened to sterile field. 14:09:46 Sheath removed intact; hemostasis achieved with Exoseal to the Right Femoral artery. 14:10:44 Procedure ended.(Physican Out) 14:10:53 Fluoroscopy time 04.50 minutes. 14:10:58 Flurop Dose total: 618 14:10:58 Fluoroscopy dose: 618 mGy 14:11:04 Dose Area Product 86504 mGy/cm. 14:11:07 Contrast amount:Isovue 300 87ml. 14:11:10 Maximum allowable dose exceeded? No. 14:11:11 Sharps counted by scrub and verified by R.N. 14:11:22 Post-op/insertion site Right Femoral artery dressed using a 4 x 4 and Tegaderm. 14:11:38 Post-procedure physical assessment completed. ASA score P 2 - A patient with mild systemic disease as per Poncho Almendarez MD. 14:11:43 Post procedure rhythm: sinus rhythm 14:11:51 Estimated blood loss: 10 ml 14:11:52 Post procedure instruction explained to patient.Patient verbalizes understanding. 14:11:52 Patient needs reinforcement of post procedure teaching. 14:11:57 Plavix 600 mg P.O. was administered by Vaughn Walsh RN; for antiplatelet therapy; Verbal order read back and verified. 14:12:37 Procedure type changed to Cath procedure, Diagnostic procedure, LHC, [facility] w/Coronaries, FFR/IVUS, FFR Initial, Sedation Charges, Moderate Sedation 25-39 minutes, PCI procedure, Coronary Stent, Coronary Stent Initial, Hemochron ACT Test 14:13:08 Procedure and supply charges have been captured, reviewed, submitted and are correct. 14:13:09 Procedure Complication : No complications 14:13:13 Vital chart was stopped 14:13:15 [facility] Findings: MVD- PCI performed (see procedure note) 14:13:16 Operative report dictated upon procedure completion. 14:13:16 See physician's report for complete and final results. 14:13:24 Report given to Pre/Post Procedure Room. 14:13:27 Patient transfered to Pre/Post Procedure Room with Bed. 14:13:29 Procedure ended. 14:13:29 Full Disclosure recording stopped 14:13:42 ACC-PCI Only Patient was given prescriptions, or instructed by Poncho Almendarez MD to start/continue the following medications upon discharge: Plavix 14:16:04 ACT drawn and resulted at 214 seconds. (normal therapeutic range 180-240 seconds). 14:16:07 End room use (Document Last) Intervention Summary Intervention Notes Time ActionType Lesion and Equipment Used Action# Pressure Duration Attributes 14:05:51 Place stent Mid LAD GEORGE RX 3.5 x 1 12 00:00 18 stent ([id number]) Device Usage Item Name Manufacture Quantity Catalog [facility] Lot# / Number Charge Number Stock Stock Serial# Code ACIST Syringe Acist 1 05919 549784 358914 876339 20 (86098) Medical Systems Inc Bag Decanter Microtek 1 2001S 258170 10671 335749 5 (2001S) Medical Inc. ACIST Hand Acist 1 97946 281558 744022 673853 5 Control Medical (05349) Systems Inc ACIST Manifold Acist 1 28295 360289 095350 763054 5 (07432) Medical Systems Inc Tegaderm 4 x 4 3M 1 1626W 778586 838955 576792 5 (1626W) Medline Cath Medline 1 [id number] 173996 41904 149277 5 Pack ([id number]) DIAGNOSTIC Cardinal 1 HR0388 301783 70408 301657 30 Multipack 5Fr Health catheter set (AI1188) SHEATH 5FR Terumo 1 TZT152 331384 616758 060825 5 Campbell (QER851) EMERALD Guide Cardinal 1 502-455 792521 802418 194446 5 Wire (502-455) Health MULTIPACK JL Cardinal 1 331197 5 4.0 5Fr Health catheter MULTIPACK 3DRC Cardinal 1 277815 5 5Fr catheter Health MULTIPACK Cardinal 1 653300 5 Pigtail 5 Fr Health catheter SHEATH 6FR Terumo 1 LWH916 803828 789400 241099 40 Campbell (OLI444) TUBING High Merit 1 [id number] 343478 18665 482461 10 Pressure Medical Extension Tubing (Erickson) (IH5052B) GUIDE 6FR Cardinal 1 [id number] 208691 230784 476074 10 XBLAD 3.5 Health catheter (00451981) INFLATOR Merit Merit 1 IJ1377 156076 562140 163936 15 BasixCompak Medical (LY6098) [place] 1 1948440 403479 63662 9985 5 OmniWire (61646) GEORGE RX 3.5 x Medtronic 1 [id number] 009681 5934841 352656 5 [id number] 18 stent ([id number]) EXOSEAL 6Fr Cardinal 1 EX600 917352 141918 494791 10 (EX600) Health Signature Audit [place] Stage Time Signature Unsigned Intra-Procedure 07/26/2020 Ayesha Mckinney 2:20:19 PM RT(R) Intra-Procedure 07/26/2020 Vaughn 2:20:35 PM Jillian RN Intra-Procedure 07/26/2020 Poncho Almendarez MD 2:20:51 PM Signatures Performing Physician : Signature : Poncho Almendarez MD Date : Time : Monitor : Ayesha Mckinney Signature : RT Date : Time : Nurse : Vaughn Walsh Signature : RN Date : Time : [facility] [address] [place] [address]
[2020-07-26 11:35] VITALS: BP 167/97; Ht 165.1 cm; Wt 46.2 kg
[2020-07-26 11:37] LABS: BASOPHILS 0.3 % (0-2); EOSINOPHILS 4.3 % (0-7); HEMATOCRIT 37.6 % (36.0-48.0); HEMOGLOBIN 12.1 g/dL (12-16); IMMATURE GRANULOCYTES 0.3 % (0-5); LYMPHOCYTE ABS# 1.42 10x3/uL (1.18-3.74); LYMPHOCYTES 18.4 % (15-50); MCH 33.4 pg (26.0-34.0); MCHC 32.2 g/dL (31.0-37.0); MCV 103.9 fL (80.0-100.0); MEAN PLATELET VOLUME 9.5 fL (7.4-10.4); MONOCYTES 10.9 % (2-11); NEUTROPHIL ABS# 5.09 10x3/uL (1.56-6.13); NEUTROPHILS 65.8 % (40-80); RBC 3.62 10x6/uL (4.00-5.40); RDW 14.3 % (11.5-14.5); WBC 7.7 10x3/uL (4.8-10.8)
[2020-07-26 11:39] LABS: PLATELET COUNT 216 10x3/uL (130-400)
[2020-07-26 11:59] LABS: ALT (SGPT) 19 U/L (10-68); CALC OSMOLALITY 277 mosm/kg (275-300); CALCIUM 8.9 mg/dL (8.5-10.1); CARBON DIOXIDE 31.1 mmol/L (21.0-32.0); CHLORIDE - SERUM 99 mmol/L (98-107); CHOL - HDL RATIO 1.8 ratio (2.3-4.1); CHOLESTEROL, TOTAL 97 mg/dL (0-200); CREATININE - SERUM 0.6 mg/dL (0.6-1.3); GLUCOSE 101 mg/dL (74-106); HDL CHOLESTEROL 55 mg/dL (32-96); LDL CHOLESTEROL 28 mg/dL (0-100); LDL-HDL RATIO 0.5 ratio (1.5-3.5); POTASSIUM - SERUM 3.3 mmol/L (3.5-5.1); SODIUM 139 mmol/L (136-145); TRIGLYCERIDE 74 mg/dL (30-200); UREA NITROGEN 12 mg/dL (7-18); eGFR NON AFRICAN AMERICAN > 90 mL/min (90-120)
--- NOTE | 2020-07-26 14:32 | NUR ---
PT ARRIVED BY STRETCHER. PLACED ON MONITORS. ASSESSMENT COMPLETED. VSS AT THIS TIME. CALL LIGHT WITHIN REACH. FAMILY AT BEDSIDE.
[2020-07-26] MEDS ORDERED: PLAVIX75 MG PO (14:35)
--- NOTE | 2020-07-26 14:47 | NUR ---
RIGHT GROIN DRESSING C/D/I. NO S/S OF HEMATOMA NOTED. CALL LIGHT WITHIN REACH. VSS AT THIS TIME. RIGHT PEDAL PULSE PALPABLE AT THIS TIME. FAMILY AT BEDSIDE. TOLERATING SIPS OF SODA. DENIES NAUSEA.
--- NOTE | 2020-07-26 15:15 | NUR ---
RIGHT GROIN DRESSING C/D/I. NO S/S OF HEMATOMA NOTED. CALL LIGHT WITHIN REACH. VSS AT THIS TIME. FAMILY AT BEDSIDE. PT RESTING COMFORTABLY. NO NEEDS. DENIES NAUSEA/PAIN. RIGHT FOOT WITH PALPABLE PULSE.
--- NOTE | 2020-07-26 15:45 | NUR ---
RIGHT GROIN DRESSING C/D/I. NO S/S OF HEMATOMA NOTED. CALL LIGHT WITHIN REACH. VSS AT THIS TIME. PT RESTING COMFORTABLY. RIGHT PEDAL PULSE PALPABLE.
--- NOTE | 2020-07-26 16:10 | NUR ---
PT ON BEDPAN. VOIDED APPROX 400cc OF CLEAR YELLOW URINE WITHOUT DIFFICULTY. FELICITA-CARE GIVEN. RIGHT GROIN DRESSING C/D/I. NO S/S OF HEMATOMA NOTED. CALL LIGHT WITHIN REACH. VSS AT THIS TIME. RIGHT PEDAL PULSE PALPABLE. FAMILY AT BEDSIDE.
--- NOTE | 2020-07-26 17:00 | NUR ---
RIGHT GROIN DRESSING C/D/I. NO S/S OF HEMATOMA NOTED. RIGHT PEDAL PULSE PALPABLE. HEAD OF BED INC TO 30 DEGREES. TOLRATED WELL. SET UP WITH APPLE SAUCE AND SODA. DENIES NAUSEA/PAIN AT THIS TIME.
--- NOTE | 2020-07-26 17:42 | NUR ---
RIGHT GROIN DRESSING C/D/I. NO S/S OF HEMATOMA NOTED. PIV D/C'D WITH CATH TIP INTACT. TOLERATED WELL. PT INSTRUCTED TO GET UP AND DRESSED AT THIS TIME. FAMILY AT BEDSIDE TO ASSIST. CALL LIGHT LEFT WITHIN REACH.
--- NOTE | 2020-07-26 17:45 | NUR ---
ALCOHOL WIPES USED TO WIPE AREAS THAT EKG PATCHES WERE ON PT PER PT REQUEST. NO SKIN BREAKDOWN NOTED. PINKNESS NOTED AT THESE SITES. PAPER TAPE USED WHEN IV REMOVED AND AT RIGHT GROIN DRESSING SITE.
--- NOTE | 2020-07-26 17:55 | NUR ---
DISCUSSED DISCHARGE INSTRUCTIONS WITH PT AND PT'S DAUGHTER. THEY VOICED UNDERSTANDING. PT TAKEN TO RESTROOM. SHE VOIDED WITHOUT DIFFICULTY. RIGHT GROIN DRESSING C/D/I. NO S/S OF HEMATOMA NOTED.
--- NOTE | 2020-07-26 18:00 | NUR ---
PT TAKEN OUT TO VEHICLE BY WHEELCHAIR. NO S/S OF DISTRESS NOTED. ALL BELONGINGS AND PAPERWORK IN HAND.
== END 2020-07-26 18:00 | disposition home or self-care (01) ==
LOC: D.CATH 10:49
PROVIDERS: ATTEND Internal Medicine Cardiovascular Disease
DX: I25.119 Atherosclerotic heart disease of native coronary artery with unspecified angina pectoris (principal); I10 Essential (primary) hypertension; E78.5 Hyperlipidemia, unspecified; K21.9 Gastro-esophageal reflux disease without esophagitis
CPT/HCPCS: 93458; 93571; C9600